=== PATIENT | male | born 1985 | race Hispanic/Latino ===

== ENCOUNTER 2018-06-13 18:55 | Emergency (ER) | payer OTHER ==
[2018-06-13 19:13] VITALS: BP 123/64; PULSE 68; RESP 16; TEMP 98.5; O2SAT 97; BMI 23.6
[2018-06-13 21:17] LABS: BASO # 0.1 K/uL (0.0-0.2); EOS # 0.2 K/uL (0.0-0.7); EOS % 3.6 % (0.0-4.0); HEMOGLOBIN 14.7 g/dL (12.0-18.0); LYMPH # 2.2 K/uL (1.0-4.3); LYMPH % 34.3 % (20.0-40.0); MEAN CELL VOLUME 89.9 fl (80.0-94.0); MEAN CORPUSCULAR HEMOGLOBIN 31.7 pg (27.0-31.0); MEAN CORPUSCULAR HGB CONC 35.2 g/dL (33.0-37.0); MEAN PLATELET VOLUME 8.4 fl (7.2-11.7); MONO # 0.7 K/uL (0.0-0.8); MONO % 10.3 % (0.0-10.0); NEUT # 3.3 K/uL (1.8-7.0); NEUT % 50.8 % (50.0-75.0); NRBC % 0.1 % (0.0-0.0); RBC 4.65 Mil/uL (4.40-5.90); RED CELL DISTRIBUTION WIDTH 12.5 % (11.5-14.5); WHITE BLOOD COUNT 6.4 K/uL (4.8-10.8)
[2018-06-13 21:42] LABS: ALB/GLOB RATIO 1.5 (1.0-2.1); ALBUMIN 4.2 g/dL (3.5-5.0); ALT/SGPT 25 U/L (21-72); AST/SGOT 22 U/L (17-59); BLOOD UREA NITROGEN 33 mg/dl (9-20); CALCIUM 9.1 mg/dL (8.4-10.2); GFR AFRICAN-AMERICAN > 60; GFR NON-AFRICAN AMERICAN 54
[2018-06-13 21:42] LABS: SQUAMOUS EPITHIAL < 1 /hpf (0-5); URINE BILIRUBIN NEGATIVE (NEGATIVE); URINE BLOOD NEGATIVE (NEGATIVE); URINE CLARITY CLEAR (Clear); URINE COLOR YELLOW (YELLOW); URINE GLUCOSE (UA) NEG (Normal); URINE LEUKOCYTE ESTERASE NEG Leu/uL (Negative); URINE PROTEIN NEGATIVE (NEGATIVE); URINE UROBILINOGEN 0.2-1.0 mg/dL (0.2-1.0)
--- NOTE | 2018-06-13 21:51 | ED PDOC ---
HPI: Male Pain Time Seen by Provider: 06/13/18 19:34 Chief Complaint (Nursing): Male Genitourinary Chief Complaint (Provider): Right testicular pain History Per: Patient History/Exam Limitations: no limitations Additional History Per: Patient Additional Complaint(s): 33yo male, comes to ER with complaints of right sided testicular pain since 10PM yesterday. Patien states he has a history of viral myocarditis, diagnosed 6 years ago and at that same time, he had an incidental finding of an atrophic kidney (unsure of which.) He states the pain was sharp but states it is currently not present; he denies any nausea, vomiting, or abdominal pain. Patient states at times the pain radiates to his right groin. Patient was seen by Dr. Gaming and referred to the ER for further eval. He denies any hematuria , dysuria, or hematospermia. He has no additional medical complaints. Past Medical History Reviewed: Historical Data, Nursing Documentation, Vital Signs Vital Signs: Last Vital Signs Temp 98.5 F 06/13/18 19:12 Pulse 68 06/13/18 19:12 Resp 16 06/13/18 19:12 BP 123/64 06/13/18 19:12 Pulse Ox 97 06/13/18 19:12 - Surgical History Surgical History: No Surg Hx - Family History Family History: States: No Known Family Hx - Allergies Allergies/Adverse Reactions: Allergies Allergy/AdvReac Type Severity Reaction Status Date / Time No Known Allergies Allergy Verified 06/13/18 19:23 Review of Systems ROS Statement: Except As Marked, All Systems Reviewed And Found Negative Constitutional: Negative for: Fever, Chills Genitourinary Male: Positive for: Other (right testicular pin). Negative for: Dysuria, Frequency, Hematuria Physical Exam - Reviewed Nursing Documentation Reviewed: Yes Vital Signs Reviewed: Yes - Physical Exam Appears: Positive for: Non-toxic, No Acute Distress Head Exam: Positive for: ATRAUMATIC, NORMAL INSPECTION, NORMOCEPHALIC Skin: Positive for: Normal Color Eye Exam: Positive for: Normal appearance Neck: Positive for: Supple Cardiovascular/Chest: Positive for: Regular Rate, Rhythm Respiratory: Positive for: Normal Breath Sounds Gastrointestinal/Abdominal: Positive for: Soft. Negative for: Tenderness Male Genital Exam: Positive for: normal genitalia, other. Negative for: inguinal tenderness, scrotum tenderness (R), scrotum tenderness (L), testicular tenderness (R), testicular tenderness (L) Extremity: Positive for: Normal ROM Neurologic/Psych: Positive for: Alert, Oriented - Laboratory Results Result Diagrams: 06/13/18 21:00 06/13/18 21:00 - ECG O2 Sat by Pulse Oximetry: 97 (RA) Pulse Ox Interpretation: Normal Medical Decision Making Medical Decision Making: Impression: 33yo male with right sided testicular pain Plan: -- US testicular -- Urinalysis -- CBC -- CMP 2113 US Testicular FINDINGS: Right testicle: Unremarkable. No mass. No torsion. 4.8 cm a 2.5 cm x 2.6 cm Left testicle: Unremarkable. No mass. No torsion. 5.1 cm x 2.2 cm x 3.5 cm. Epididymides: Unremarkable. RIGHT 8mm x 8mm x 10 mm. LEFT 9 mm x 6 mm x 8 mm Scrotum: Small left-sided varicocele IMPRESSION: Small left-sided varicocele Otherwise negative examination of the scrotum 2210 Labs reviewed and shows no clinically significant abnormalities. Provider discussed with patient possibility for further imaging although in provider's opinion there is no indication due to normal labs and US. Patient is agreeable with plan and states he will follow up outpatient with urologist. Patient instructed to take tylenol for pain and return precautions given. Diagnosis: Right testicular pain Scribe Attestation: Documented by Anisa Mortensen, acting as a scribe for Larry Garay MD. Provider Scribe Attestation: All medical record entries made by the Scribe were at my direction and personally dictated by me. I have reviewed the chart and agree that the record accurately reflects my personal performance of the history, physical exam, medical decision making, and the department course for this patient. I have also personally directed, reviewed, and agree with the discharge instructions and disposition. Disposition - Clinical Impression Clinical Impression: Testicular pain, right - Disposition Referrals: Autumn Moser MD [Medical Doctor] - Disposition: Routine/Home Disposition Time: 22:10 Condition: STABLE Forms: [id number] (Kiswahili)
--- NOTE | 2018-06-14 10:32 | US ---
Date of service: 06/13/2018 HISTORY: right testicular pain TECHNIQUE: Realtime sonography through the scrotum with color and doppler flow. COMPARISON: None Available. FINDINGS: RIGHT TESTICLE: Measures 2.5 x 2.6 x 4.8 cm. Normal echotexture and flow. RIGHT EPIDIDYMIS: Epididymal head measures 0.8 x 1.0 cm. Grossly unremarkable appearance with normal flow. LEFT TESTICLE: Measures 2.2 x 3.5 x 5.1 cm. Normal echotexture and flow. LEFT EPIDIDYMIS: Epididymal head measures 0.6 x 0.9 cm. Grossly unremarkable appearance with normal flow. HYDROCELE: None. VARICOCELE: Small, unilateral -left. OTHER FINDINGS: None. IMPRESSION: No significant or acute findings to account for/ related to the clinical presentation. Additional benign and/or incidental findings described above. Concordant results (preliminary interpretation) provided by [facility]. Procedure Completed: 20:45. Preliminary ([facility]) Report: Dictated and Authenticated: 21:13. Final Interpretation: 10:31. June 14, 2018.
== END 2018-06-13 22:16 | disposition home or self-care (01) ==
LOC: H.ER 18:55
DX: I86.1 Scrotal varices (principal)